=== PATIENT | female | born 1985 | race African-American/Black ===

== ENCOUNTER 2019-05-04 20:20 | Emergency (ER) | payer OTHER ==
[~2019-05-04] VITALS: Ht 152.4 cm; Wt 75.8 kg
[~2019-05-04 20:20] MED LIST: PROPRANOLOL 1010 MG PO
[2019-05-04 21:15] VITALS: BP 117/70
== END 2019-05-04 21:20 | disposition home or self-care (01) ==
LOC: ER 20:20
DX: M54.6 Pain in thoracic spine (principal); V89.2XXA Person injured in unspecified motor-vehicle accident, traffic, initial encounter; Y93.89 Activity, other specified; Y92.89 Other specified places as the place of occurrence of the external cause; Y99.8 Other external cause status